=== PATIENT | male | born 1985 | race Hispanic/Latino ===

== ENCOUNTER 2023-02-15 17:55 | Inpatient (IN) | payer SELFPAY ==
[~2023-02-15 17:55] MED LIST: Iopamidol-370 76% 500 ML MDV (1 ML CHARGE) ONE
[2023-02-15] MEDS ORDERED: Ketorolac Tromethamine 30 MG/ML VIAL ONE (18:56)
[2023-02-15] MEDS ORDERED: Dexamethasone 10 MG/ML VIAL ONE (18:56)
[2023-02-15] MEDS ORDERED: Morphine 4 MG/ML VIAL ONE (18:56)
[2023-02-15 18:59] LABS: #Monocytes 0.8 thou/uL (0.11-0.59); #Neutrophils 12.9 thou/uL (1.40-6.50); %Basophils 0.2 % (0.0-1.0); %Lymphocytes 4.6 % (21.0-51.0); %Monocytes 5.5 % (0.0-10.0); %Neutrophils 89.3 % (42.0-75.0); Hematocrit 42.7 % (42.0-52.0); Mean Corpuscular HGB CONC 35.1 g/dL (32.0-36.0); Mean Corpuscular Hemoglobin 32.7 pg (27.0-31.0); Platelet Count 235 10x3/uL (130-400); RBC Distribution Width 12.5 % (11.5-14.5); Red Blood Cell (RBC) Count 4.59 mill/uL (4.70-6.10); White Blood Cell (WBC) Count 14.4 10x3/uL (4.8-10.8)
[2023-02-15 19:18] LABS: SARS-CoV-2 NAA Rapid Test Not Detected (NotDetected)
[2023-02-15 19:27] LABS: ALT (SGPT) 17 U/L (8-55); AST (SGOT) 36 U/L (5-34); Albumin 5.2 g/dL (3.5-5.0); Alkaline Phosphatase 71 U/L (40-110); Anion Gap 17 mmol/L (10-20); BUN (Urea Nitrogen) 7 mg/dL (8.9-20.6); Bilirubin, Total 0.9 mg/dL (0.2-1.2); Calc. Creatinine Clearance 0 mL/min (70-130); Calcium 9.8 mg/dL (7.8-10.44); Carbon Dioxide 25 mmol/L (22-29); Chloride 98 mmol/L (98-107); Estimated GFR 116; Globulin 3.2 g/dL (2.4-3.5); Glucose 109 mg/dL (70-105); Protein, Total 8.4 g/dL (6.0-8.3); Sodium 136 mmol/L (136-145)
[2023-02-15] MEDS ORDERED: Clindamycin/D5W 900 MG in Premix Bag 1 BAG IVPB SCH (21:00)
[2023-02-15] MEDS ORDERED: Bisacodyl 5 MG TAB PO PRN (21:36)
[2023-02-15] MEDS ORDERED: Senokot S 8.6-50 MG TAB PO PRN (21:36)
[2023-02-15] MEDS ORDERED: Acetaminophen 325 MG TAB PO PRN (21:36)
[2023-02-15] MEDS ORDERED: Ondansetron ODT 4 MG TAB PO PRN ×2 (21:36)
[2023-02-15] MEDS ORDERED: Lorazepam 1 MG TAB PO PRN (21:36)
[2023-02-15] MEDS ORDERED: Ondansetron PF 4 MG/2 ML Vial IVP PRN (21:36)
[2023-02-15] MEDS ORDERED: Acetaminophen 650 MG Suppository PR PRN (21:36)
[2023-02-15] MEDS ORDERED: Lorazepam 2 MG/ML VIAL IM PRN (21:36)
[2023-02-15] MEDS ORDERED: Electrolyte Replacement Protocol 1 EACH FS SCH (21:45)
[2023-02-15] MEDS ORDERED: Folic Acid 1 MG TAB PO SCH (22:00)
[2023-02-15] MEDS ORDERED: Multivit, Therapeutic 1 TAB PO SCH (22:00)
[2023-02-15 23:15] LABS: Magnesium 2.2 mg/dL (1.6-2.6); Phosphorus 2.6 mg/dL (2.3-4.7)
[2023-02-15] MEDS: Thiamine HCl 200 MG/2 ML VIAL SLOW IVP SCH (23:30)
[2023-02-15] MEDS: Ampicillin/Sulbactam 3 GM in Sodium Chloride 0.9% 100 ML IVPB SCH (23:37)
[2023-02-16] MEDS ORDERED: Morphine 2 MG/ML VIAL SLOW IVP PRN ×2 (01:39→17:01)
[2023-02-16] MEDS ORDERED: Glucagon 1 MG/ML KIT IM PRN (03:02)
[2023-02-16] MEDS ORDERED: Dextrose 50% Abboject 50 ML SYRINGE SLOW IVP PRN (03:02)
[2023-02-16] MEDS ORDERED: Dextrose 5% in Water 1,000 ML IV PRN (03:02)
[2023-02-16] MEDS ORDERED: Sodium Chloride 0.9% 1,000 ML IV SCH (03:30)
[2023-02-16] MEDS: Ketorolac Tromethamine 30 MG/ML VIAL IVP PRN ×3 (05:29→21:34)
[2023-02-16 05:37] LABS: #Monocytes 0.4 thou/uL (0.11-0.59); #Neutrophils 14.1 thou/uL (1.40-6.50); %Basophils 0.1 % (0.0-1.0); %Lymphocytes 3.4 % (21.0-51.0); %Monocytes 2.6 % (0.0-10.0); %Neutrophils 93.5 % (42.0-75.0); Hematocrit 40.1 % (42.0-52.0); Mean Corpuscular HGB CONC 34.9 g/dL (32.0-36.0); Mean Corpuscular Hemoglobin 32.2 pg (27.0-31.0); Mean Corpuscular Volume 92.2 fl (78.0-98.0); Mean Platelet Volume 10.5 fL (7.4-10.4); Platelet Count 239 10x3/uL (130-400); RBC Distribution Width 12.5 % (11.5-14.5); Red Blood Cell (RBC) Count 4.35 mill/uL (4.70-6.10); White Blood Cell (WBC) Count 15.1 10x3/uL (4.8-10.8)
[2023-02-16 05:53] LABS: Anion Gap 13 mmol/L (10-20); BUN (Urea Nitrogen) 10 mg/dL (8.9-20.6); Calc. Creatinine Clearance 108 mL/min (70-130); Calcium 9.7 mg/dL (7.8-10.44); Carbon Dioxide 28 mmol/L (22-29); Chloride 102 mmol/L (98-107); Estimated GFR 118; Glucose 133 mg/dL (70-105); Potassium 4.5 mmol/L (3.5-5.1); Sodium 138 mmol/L (136-145)
[2023-02-16] MEDS: Ampicillin/Sulbactam 3 GM in Sodium Chloride 0.9% 100 ML IVPB SCH ×4 (06:10→23:57)
[2023-02-16 06:11] LABS: Amphetamine Not Detected (NotDetected); Barbiturates Screen Not Detected (NotDetected); Benzodiazepine Screen Not Detected (NotDetected); Cocaine Metabolite Screen Not Detected (NotDetected); Methadone Not Detected (NotDetected); Methamphetamine Not Detected (NotDetected); Opiate Screen Detected (NotDetected); Oxycodone Screen Not Detected (NotDetected); Phencyclidine (PCP) Not Detected (NotDetected); THC/Cannabinoid Screen Not Detected (NotDetected); Tricyclic Screen Not Detected (NotDetected)
[2023-02-16] MEDS: Dexamethasone 10 MG/ML VIAL SLOW IVP SCH (08:11)
[2023-02-16] MEDS: Famotidine 20 MG TAB PO SCH ×2 (08:12→21:30)
[2023-02-16] MEDS: Folic Acid 1 MG TAB PO SCH (08:13)
[2023-02-16] MEDS: Multivit, Therapeutic 1 TAB PO SCH (08:13)
[2023-02-16] MEDS ORDERED: FLU VACC QS2023-24(6MOS UP)/PF 60 MCG/0.5 ML SYRINGE IM ONE (09:00)
[2023-02-16 11:18] LABS: Syphilis Antibody Nonreactive (Nonreactive); Syphilis Antibody Index 0.05 S/CO (<1.00 Non-Reactive)
[2023-02-16] MEDS ORDERED: Fentanyl 250 MCG/5 ML VIAL ONE (15:16)
[2023-02-16] MEDS ORDERED: SUGAMMADEX SODIUM 200 MG/2 ML VIAL ONE (15:16)
[2023-02-16] MEDS ORDERED: EPINEPHrine 1 MG/ML AMP ONE (15:31)
[2023-02-16] MEDS ORDERED: Chlorhexidine Gluconate 15 ML UDCUP SSP ONE (15:31)
[2023-02-16] MEDS ORDERED: Lidocaine 1% (PF) 30 ML VIAL ONE (15:31)
[2023-02-16] MEDS ORDERED: Oxymetazoline HCl 0.05% (30 ML BOT) ONE (15:32)
[2023-02-16] MEDS ORDERED: Lidocaine 1% PF 5 ML VIAL ONE (15:54)
[2023-02-16] MEDS ORDERED: Rocuronium Bromide 10 MG/ML (10ML VIAL) ONE (15:54)
[2023-02-16] MEDS ORDERED: PROPOFOL 200 MG/20 ML VIAL ONE (15:54)
[2023-02-16] MEDS ORDERED: HYDROcodone/Acetaminophen 5/325 mg Tablet PO PRN (17:00)
[2023-02-16] MEDS: D5 0.9% NS w/ 20 mEq KCl 1,000 ML IV SCH (17:36)
[2023-02-16] MEDS: Ibuprofen 800 MG TAB PO SCH ×2 (17:36→23:57)
[2023-02-16] MEDS: Thiamine HCl 200 MG/2 ML VIAL SLOW IVP SCH (21:30)
[2023-02-16] MEDS: Chlorhexidine Gluconate 15 ML UDCUP SSP SCH (21:32)
[2023-02-16] MEDS ORDERED: Lorazepam 1 MG TAB PO PRN (21:36)
[2023-02-17] MEDS: D5 0.9% NS w/ 20 mEq KCl 1,000 ML IV SCH (05:35)
[2023-02-17] MEDS: Ibuprofen 800 MG TAB PO SCH ×2 (05:36→11:50)
[2023-02-17] MEDS: Ampicillin/Sulbactam 3 GM in Sodium Chloride 0.9% 100 ML IVPB SCH ×2 (05:36→11:49)
[2023-02-17 06:37] LABS: #Neutrophils 8.7 thou/uL (1.40-6.50); %Basophils 0.1 % (0.0-1.0); %Lymphocytes 12.2 % (21.0-51.0); %Monocytes 9.2 % (0.0-10.0); %Neutrophils 78.1 % (42.0-75.0); Hemoglobin 11.7 g/dL (14.0-18.0); Mean Corpuscular HGB CONC 34.4 g/dL (32.0-36.0); Mean Corpuscular Hemoglobin 32.7 pg (27.0-31.0); Mean Platelet Volume 10.8 fL (7.4-10.4); Platelet Count 208 10x3/uL (130-400); RBC Distribution Width 12.8 % (11.5-14.5); Red Blood Cell (RBC) Count 3.58 mill/uL (4.70-6.10); White Blood Cell (WBC) Count 11.1 10x3/uL (4.8-10.8)
[2023-02-17] MEDS: Dexamethasone 10 MG/ML VIAL SLOW IVP SCH (07:58)
[2023-02-17] MEDS: Multivit, Therapeutic 1 TAB PO SCH (07:59)
[2023-02-17] MEDS: Folic Acid 1 MG TAB PO SCH (07:59)
[2023-02-17] MEDS: Famotidine 20 MG TAB PO SCH (07:59)
[2023-02-17] MEDS: Chlorhexidine Gluconate 15 ML UDCUP SSP SCH ×2 (08:00→14:49)
[2023-02-17 08:09] VITALS: BP 107/64; TEMP 98
[2023-02-17] MEDS ORDERED: Lorazepam 1 MG TAB PO PRN (21:36)
[2023-02-18] MEDS ORDERED: Thiamine 100 MG TAB PO SCH (09:00)
[2023-02-18] MEDS ORDERED: Lorazepam 0.5 MG TAB PO PRN (21:36)
== END 2023-02-17 15:40 | disposition home or self-care (01) | DRG 137 ==
LOC: ERS 17:55 → T4-A 21:10
PROVIDERS: ADMIT Student in an Organized Health Care Education/Training Program; ATTEND Internal Medicine
PROC: 0J910ZZ Drainage of Face Subcutaneous Tissue and Fascia, Open Approach (ICD-10-PCS; principal; 2023-02-16)
PROC: 0W930ZZ Drainage of Oral Cavity and Throat, Open Approach (ICD-10-PCS; 2023-02-16)
PROC: 0CDXXZ0 Extraction of Lower Tooth, Single, External Approach (ICD-10-PCS; 2023-02-16)
PROC: 3E053XZ Introduction of Vasopressor into Peripheral Artery, Percutaneous Approach (ICD-10-PCS; 2023-02-16)
DX: K04.7 Periapical abscess without sinus (principal); K12.2 Cellulitis and abscess of mouth; F17.210 Nicotine dependence, cigarettes, uncomplicated; K04.1 Necrosis of pulp; Z71.6 Tobacco abuse counseling; Z98.890 Other specified postprocedural states; Z20.822 Contact with and (suspected) exposure to COVID-19
CPT/HCPCS: 36415; 36416; 70492; 80048; 80053; 80306; 83605; 83735; 84100; 85025; 86780; 87040; 87070; 87081; 87205; 87430; 96365; 96375; J0171; J0295; J1100; J1650; J1885; J2001; J2270; J2272; J2405; J2704; J3010; J3411; J3480; J3490; J7050; Q9967